=== PATIENT | female | born 1995 | race Caucasian/White ===

== ENCOUNTER 2018-03-22 13:30 | Emergency (ER) | payer OTHER ==
[2018-03-22 14:24] VITALS: BP 105/55; PULSE 101; TEMP 98.9; BMI 24.7
--- NOTE | 2018-03-22 15:07 | PDOC ---
History of Present Illness - General Chief Complaint: Cold Symptoms Stated Complaint: FLU LIKE SYMPTOMS Time Seen by Provider: 03/22/18 14:51 History Source: Patient Exam Limitations: No Limitations - History of Present Illness Initial Comments: 03/22/18 15:09 22 yr female with sore throat stuffy nose, congestion, and sneezing for 2-3 days no fever. no pmhx. no surgical history. no allergies. non smoker no ETOH use. Timing/Duration: reports: constant Severity: reports: mild Past History - Past Medical History Allergies/Adverse Reactions: Allergies Allergy/AdvReac Type Severity Reaction Status Date / Time No Known Allergies Allergy Verified 03/22/18 14:22 Home Medications: Ambulatory Orders Desloratadine/Pseudoephedrine [Clarinex-D 12 Hour Tablet] 1 each PO DAILY #14 tbmp.12hr 03/22/18 Fluticasone Prop 0.05% Nasal [Flonase -] 1 - 2 spray NS DAILY #1 spray.pump COPD: No - Suicide/Smoking/Psychosocial Hx Smoking History: Never smoked Hx Alcohol Use: No Drug/Substance Use Hx: No Respiratory Specific PMHX - Complaint Specific PMHX Angina: No Bronchitis: No Pneumonia: No Pulmonary Embolus: No TB (Tuberculosis): No Review of Systems - Review of Systems Able to Perform ROS?: Yes Is the patient limited Stateless proficient: No Constitutional: No: Symptoms Reported HEENTM: Yes: Symptoms Reported Respiratory: Yes: Symptoms reported *Physical Exam - Vital Signs Last Vital Signs Temp Pulse Resp BP Pulse Ox 98.9 F 101 H 18 105/55 L 100 03/22/18 14:22 03/22/18 14:22 03/22/18 14:22 03/22/18 14:22 03/22/18 14:22 - Physical Exam General Appearance: Yes: Nourished, Appropriately Dressed HEENT: positive: EOMI, ESEQUIEL, Tonsillar Exudate, Tonsillar Erythema, Other ( sinus congestion) Neck: negative: Tender Respiratory/Chest: positive: Lungs Clear, Normal Breath Sounds. negative: Chest Tender Cardiovascular: positive: Regular Rhythm, Regular Rate Medical Decision Making - Medical Decision Making 03/22/18 15:10 nasal congestion, sneezing, cough sore throat non toxic eating and drinking well pt on day 2 of self medication with amoxicillin for sore throat will prescribe nasal spray and antihistamine pt can continue the amoxicillin for 7 days follow up with your primary care doctor for follow up return if any worsening symptoms *DC/Admit/Observation/Transfer Diagnosis at time of Disposition: Viral upper respiratory tract infection with cough - Discharge Dispostion Disposition: HOME Condition at time of disposition: Good - Prescriptions Prescriptions: Desloratadine/Pseudoephedrine [Clarinex-D 12 Hour Tablet] 1 each PO DAILY #14 tbmp.12hr Fluticasone Prop 0.05% Nasal [Flonase -] 1 - 2 spray NS DAILY #1 spray.pump - Referrals Referrals: Alondra Tyson [Primary Care Provider] - - Patient Instructions Printed Discharge Instructions: DI for Common Cold Additional Instructions: gargle with warm salt water 4-5 times a day continue the amoxicillin you have already started take for 7 days please use the flonase nasal spray as directed and the claritin d for congestion, sneezing and cough drink pleanty of water, tea with honey and lemon follow with your doctor in 3-4 days if any worsening symptoms Hacer grgaras con [place] tibia 4-5 veces al da contine con la amoxicilina que ya nelson comenzado a quirino heather 7 zapata por favor use el aerosol nasal flonase mary se indica y la clarificacin de congestin, estornudos y tos. Beber eun agua, t con miel y limn. siga con rojo mdico en 3-4 zapata si hay algn empeoramiento de los sntomas Print Language: RUSSIAN - Post Discharge Activity
== END 2018-03-22 15:37 | disposition home or self-care (01) ==
LOC: JERFT 13:30
DX: J06.9 Acute upper respiratory infection, unspecified (principal); B97.89 Other viral agents as the cause of diseases classified elsewhere
CPT/HCPCS: 99281-25